=== PATIENT | female | born 1950 | race American Indian/Alaskan Native ===

== ENCOUNTER 2019-12-08 01:03 | Emergency (ER) | payer MEDICARE ==
[2019-12-08 01:14] VITALS: BP 158/85
--- NOTE | 2019-12-08 04:09 | Emergency Department Report ---
ED General Adult HPI - General Chief complaint: Extremity Injury, Lower Stated complaint: SWOLLEN LEGS/GUM PAIN Time Seen by Provider: 12/08/19 03:04 Source: patient Mode of arrival: Ambulatory Limitations: No Limitations - History of Present Illness Initial comments: This is a 69-year-old female who presents to the emergency room with bilateral lower extremity swelling and dental pain. Patient states she is experiencing lower dental pain and bilateral lower extremity swelling and pain for 2 weeks. Patient states she was admitted at [facility] and had scraping of her bilateral lower extremity to remove infected skin 8 months ago. She is followed by wound care. Past medical history of hypertension and DVT. Patient denies shortness of breath, cough, chest pain, palpitations, or wheezing. Onset/Timin -: week(s) Location: lower extremity Radiation: non-radiation Severity scale (0 -10): 5 Quality: aching Consistency: constant Improves with: immobilization Worsens with: movement Associated Symptoms: denies other symptoms Treatments Prior to Arrival: none - Related Data Previous Rx's Medication Instructions Recorded Last Taken Type Ibuprofen [Motrin 600 MG tab] 600 mg PO Q8H PRN #20 tablet 12/08/19 Unknown Rx Allergies Allergy/AdvReac Type Severity Reaction Status Date / Time No Known Allergies Allergy Unverified 12/08/19 01:17 ED Review of Systems ROS: Stated complaint: SWOLLEN LEGS/GUM PAIN Other details as noted in HPI Constitutional: denies: chills, fever Respiratory: denies: cough, shortness of breath, wheezing Cardiovascular: edema (Bilateral lower extremity edema and pain). denies: chest pain, palpitations Gastrointestinal: denies: abdominal pain, nausea, diarrhea Musculoskeletal: denies: back pain, joint swelling, arthralgia Neurological: denies: headache, weakness, paresthesias Psychiatric: denies: anxiety, depression ED Past Medical Hx - Past Medical History Previous Medical History?: Yes Hx Hypertension: Yes Hx Deep Vein Thrombosis: Yes - Surgical History Past Surgical History?: Yes Additional Surgical History: LE - Social History Smoking Status: Never Smoker Substance Use Type: None - Medications Home Medications: Home Medications Medication Instructions Recorded Confirmed Last Taken Type Ibuprofen [Motrin 600 MG tab] 600 mg PO Q8H PRN #20 tablet 12/08/19 Unknown Rx ED Physical Exam - General Limitations: No Limitations General appearance: alert, in no apparent distress - ENT ENT exam: Present: normal orophraynx, mucous membranes moist, TM's normal bilaterally, normal external ear exam, other (poor dentition, dental caries #28, ttp, no gingival swellin ) - Respiratory Respiratory exam: Present: normal lung sounds bilaterally. Absent: respiratory distress - Cardiovascular Cardiovascular Exam: Present: regular rate, normal rhythm. Absent: systolic murmur, diastolic murmur, rubs, gallop - GI/Abdominal GI/Abdominal exam: Present: soft, normal bowel sounds. Absent: distended, tenderness, guarding, rebound, rigid - Extremities Exam Extremities exam: Present: full ROM, normal capillary refill, pedal edema (Bilateral lower extremity swelling and discoloration to anterior bilateral tibia-fibula, TTP,). Absent: calf tenderness - Neurological Exam Neurological exam: Present: alert, oriented X3 - Psychiatric Psychiatric exam: Present: normal affect, normal mood - Skin Skin exam: Present: warm, dry, intact, normal color. Absent: rash ED Course Vital Signs 12/08/19 01:08 Temperature 98.5 F Pulse Rate 83 Respiratory 18 Rate Blood Pressure 158/85 O2 Sat by Pulse 98 Oximetry ED Medical Decision Making - Radiology Data Radiology results: report reviewed DUPLEX DOPPLER LOWER EXTREMITY VEINS, BILATERAL INDICATION: Pain in B/L LE HX of DVT. TECHNIQUE: Duplex doppler imaging was performed through the veins of both lower extremities using venous compression and other maneuvers. COMPARISON: None available. FINDINGS: Right Common Femoral vein: Negative. Right Superficial Femoral vein: Negative. Right Popliteal vein: Negative. Right Calf veins: Negative. Left Common Femoral vein: Negative. Left Superficial Femoral vein: Negative. Left Popliteal vein: Negative. Left Calf veins: Negative. Additional findings: None. IMPRESSION: 1. No sonographic evidence for DVT in either lower extremity. - Medical Decision Making This is a 69-year-old female who presents to the emergency room with bilateral lower extremity swelling and pain and dental pain for 2 weeks. Vitals are stable and patient in no acute distress. Patient denies shortness of breath, chest pain, palpitations, numbness or tingling, cough. Work-up: Duplex Doppler to bilateral lower extremity. No sonographic evidence for DVT in either lower extremity. He given analgesics. Patient is followed by wound care for wounds to bilateral lower extremity. Instructed to continue seeing wound care for management. There is no signs of abscess or gingival swelling on exam. Antibiotics are not indicated at this time. Start NSAIDs for dental pain. Referral to emergency dental clinic and given handout. Patient discharged home stable with return precautions. Instructed to follow-up with her primary care doctor. Critical care attestation.: If time is entered above; I have spent that time in minutes in the direct care of this critically ill patient, excluding procedure time. ED Disposition Clinical Impression: Dental caries, Tooth ache, Wound healing well on examination, Edema of both legs Disposition: TO HOME OR SELFCARE Is pt being admited?: No Condition: Stable Instructions: Acute Wound Care (ED), Wound Healing and Your Diet (ED), Toothache (ED) Prescriptions: Ibuprofen [Motrin 600 MG tab] 600 mg PO Q8H PRN #20 tablet PRN Reason: Pain Referrals: [facility] [Outside] - 3-5 Days [facility] [Provider Group] - 3-5 Days [facility] [Outside] - 3-[address] [facility] [Outside] - 3-5 Days Forms: Accompanied Note Time of Disposition: 06:13
--- NOTE | 2019-12-08 05:17 | Vascular Lab Report ---
DUPLEX DOPPLER LOWER EXTREMITY VEINS, BILATERAL INDICATION: Pain in B/L LE HX of DVT. TECHNIQUE: Duplex doppler imaging was performed through the veins of both lower extremities using venous miki debi and other maneuvers. COMPARISON: None available. FINDINGS: Right Common Femoral vein: Negative. Right Superficial Femoral vein: Negative. Right Popliteal vein: Negative. Right Calf veins: Negative. Left Common Femoral vein: Negative. Left Superficial Femoral vein: Negative. Left Popliteal vein: Negative. Left Calf veins: Negative. Additional findings: None. IMPRESSION: 1. No sonographic evidence for DVT in either lower extremity. Signer Name: Johan Neumann MD Signed: 12/08/2019 5:13 AM Workstation Name: [id number]
[2019-12-08] MEDS ORDERED: KETOROLAC 10 MG TAB PO ONE (06:21)
== END 2019-12-08 06:45 | disposition home or self-care (01) ==
LOC: ED 01:03
DX: K02.9 Dental caries, unspecified (principal); M79.89 Other specified soft tissue disorders; K08.89 Other specified disorders of teeth and supporting structures; I10 Essential (primary) hypertension; Z79.899 Other long term (current) drug therapy
CPT/HCPCS: 93970

== ENCOUNTER 2022-03-30 09:40 | Emergency (ER) | payer MEDICARE ==
[2022-03-30 09:53] VITALS: BP 149/95
[2022-03-30] MEDS ORDERED: CLINDAMYCIN 300 MG CAP PO ONE (13:40)
--- NOTE | 2022-03-30 15:03 | Emergency Department Report ---
ED ENT HPI - General Chief complaint: Dental/Oral Stated complaint: SEVERE MOUTH PAIN Time Seen by Provider: 03/30/22 13:27 Source: patient, family Mode of arrival: Ambulatory Limitations: Physical Limitation - History of Present Illness Initial comments: This is a 71-year-old female nontoxic, well nourished in appearance, no acute signs of distress presents to the ED with c/o of acute on chronic intermittent generalized toothache x several weeks. Patient denies following up with a dentist. Patient describes toothache as aching level of 8 out of 10. Patient denies any facial swelling. Patient denies any numbness, tingling, fever, chills, headache, stiff neck, abdominal pain, chest pain, shortness of breath. Patient denies any drug allergies. MD complaint: tooth pain -: days(s) Location: tooth # (diffuse to many teeth) Severity: mild Severity scale (0 -10): 8 Quality: aching Consistency: constant Improves with: none Worsens with: none Associated Symptoms: gum swelling, toothache. denies: fever, cough, pain with swallowing, sore throat, tinnitus, hearing loss, discharge from ear, rhinorrhea - Related Data Previous Rx's Medication Instructions Recorded Last Taken Type Ibuprofen [Motrin 600 MG tab] 600 mg PO Q8H PRN #20 tablet 12/08/19 Unknown Rx Chlorhexidine Mouthwash [Peridex] 15 ml MM BID #1 bottle 03/30/22 Unknown Rx Clindamycin [Clindamycin CAP] 300 mg PO Q8H #21 cap 03/30/22 Unknown Rx Allergies Allergy/AdvReac Type Severity Reaction Status Date / Time No Known Allergies Allergy Unverified 12/08/19 01:17 ED Dental HPI - General Chief complaint: Dental/Oral Stated complaint: SEVERE MOUTH PAIN Time Seen by Provider: 03/30/22 13:27 Source: patient, family Mode of arrival: Ambulatory Limitations: Physical Limitation - Related Data Previous Rx's Medication Instructions Recorded Last Taken Type Ibuprofen [Motrin 600 MG tab] 600 mg PO Q8H PRN #20 tablet 12/08/19 Unknown Rx Chlorhexidine Mouthwash [Peridex] 15 ml MM BID #1 bottle 03/30/22 Unknown Rx Clindamycin [Clindamycin CAP] 300 mg PO Q8H #21 cap 03/30/22 Unknown Rx Allergies Allergy/AdvReac Type Severity Reaction Status Date / Time No Known Allergies Allergy Unverified 12/08/19 01:17 ED Review of Systems ROS: Stated complaint: SEVERE MOUTH PAIN Other details as noted in HPI Comment: All other systems reviewed and negative Constitutional: denies: chills, fever Eyes: denies: eye pain, eye discharge, vision change ENT: dental pain. denies: ear pain, throat pain, hearing loss, epistaxis, co ngestion Respiratory: denies: cough, shortness of breath, wheezing Cardiovascular: denies: chest pain, palpitations Endocrine: no symptoms reported Gastrointestinal: denies: abdominal pain, nausea, diarrhea Genitourinary: denies: urgency, dysuria, discharge Musculoskeletal: denies: back pain, joint swelling, arthralgia Skin: denies: rash, lesions Neurological: denies: headache, weakness, paresthesias Psychiatric: denies: anxiety, depression Hematological/Lymphatic: denies: easy bleeding, easy bruising ED Past Medical Hx - Past Medical History Previous Medical History?: Yes Hx Hypertension: Yes Hx Deep Vein Thrombosis: Yes - Surgical History Past Surgical History?: Yes Additional Surgical History: LE - Social History Smoking Status: Never Smoker Substance Use Type: None - Medications Home Medications: Home Medications Medication Instructions Recorded Confirmed Last Taken Type Ibuprofen [Motrin 600 MG tab] 600 mg PO Q8H PRN #20 tablet 12/08/19 Unknown Rx Chlorhexidine Mouthwash [Peridex] 15 ml MM BID #1 bottle 03/30/22 Unknown Rx Clindamycin [Clindamycin CAP] 300 mg PO Q8H #21 cap 03/30/22 Unknown Rx ED Physical Exam - General Limitations: No Limitations General appearance: alert, in no apparent distress - Head Head exam: Present: atraumatic, normocephalic - Eye Eye exam: Present: normal appearance - Expanded ENT Exam Expanded Mouth exam: Present: normal external inspection, tongue normal. Absent: drooling, trismus, muffled voice Teeth exam: Present: dental caries, dental tenderness #, gingival enlargement. Absent: fractured tooth # 1 - Dental Tenderness 2 - Dental Tenderness 3 - Dental Tenderness 4 - Dental Tenderness Throat exam: Positive: normal inspection, other (no facial swelling. no dental abscess. uvula midline.). Negative: tonsillar erythema, tonsillomegaly, tonsillar exudate, R peritonsillar mass, L peritonsillar mass - Neck Neck exam: Present: normal inspection, full ROM. Absent: tenderness, meningismus, lymphadenopathy - Respiratory Respiratory exam: Absent: respiratory distress - Cardiovascular Cardiovascular Exam: Present: regular rate - Extremities Exam Extremities exam: Present: full ROM - Back Exam Back exam: Present: full ROM - Neurological Exam Neurological exam: Present: alert, oriented X3, normal gait - Psychiatric Psychiatric exam: Present: normal affect, normal mood - Skin Skin exam: Present: warm, dry, intact, normal color. Absent: rash ED Course Vital Signs 03/30/22 09:50 Temperature 98.1 F Pulse Rate 97 H Respiratory 20 Rate Blood Pressure 149/95 [Right] O2 Sat by Pulse 96 Oximetry - Reevaluation(s) Reevaluation #1: 03/30/22 15:04 Patient is speaking in full sentences with no signs of distress noted. ED Medical Decision Making - Medical Decision Making This is a 71-year-old female that presents with gingivitis and dental caries. Patient is stable and was examined by me. Exam does not show any dental abscess. I did give patient clindamycin 600 mg PO in the ED and patient is discharged with clindamycin. Patient given referrals to see a dentist as soon as possible. At time of discharge, the patient does not seem toxic or ill in appearance. No acute signs of distress noted. Patient agrees to discharge treatment plan of care. No further questions noted by the patient. Critical care attestation.: If time is entered above; I have spent that time in minutes in the direct care of this critically ill patient, excluding procedure time. ED Disposition Clinical Impression: Dental caries, Gingivitis Disposition: HOME / SELF CARE / HOMELESS Is pt being admited?: No Does the pt Need Aspirin: No Condition: Stable Additional Instructions: Follow-up with a dentist doctor as soon as possible or if symptoms worsen and continue return to emergency room as soon as possible. Prescriptions: Clindamycin [Clindamycin CAP] 300 mg PO Q8H #21 cap Chlorhexidine Mouthwash [Peridex] 15 ml MM BID #1 bottle Referrals: PRIMARY CARE, [Referring] - 3-5 Days [facility] [Outside] - [facility] [Outside] - [facility] Time of Disposition: 15:06
== END 2022-03-30 15:41 | disposition home or self-care (01) ==
LOC: ED 09:40
DX: K02.9 Dental caries, unspecified (principal); K05.10 Chronic gingivitis, plaque induced; I10 Essential (primary) hypertension; Z86.718 Personal history of other venous thrombosis and embolism; Z79.899 Other long term (current) drug therapy
CPT/HCPCS: 99282